=== PATIENT | male | born 2005 | race Caucasian/White ===

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

== ENCOUNTER 2023-04-11 11:06 | Day surgery (SDC) | payer OTHER ==
[2023-04-04 16:43] VITALS: BMI 24.2
[2023-04-11] MEDS ORDERED: PROPOFOL 20 ML ONE (13:19)
[2023-04-11] MEDS ORDERED: MIDAZOLAM HCL 2 MG/2 ML SINGLE DOSE VIAL ONE (13:19)
[2023-04-11] MEDS ORDERED: LIDOCAINE HCL/PF 2% SDV 5ML VIAL ONE (13:19)
[2023-04-11] MEDS ORDERED: BACITRACIN ZINC 15 GM TUBE TOPICAL OINTMENT ONE (13:31)
[2023-04-11] MEDS ORDERED: BUPIVACAINE HCL/PF 0.5% (5MG/ML) 10 ML VIAL ONE ×2 (13:32→14:40)
[2023-04-11] MEDS ORDERED: DEXAMETHASONE SOD PHOSPHATE 4 MG/1 ML VIAL ONE (14:34)
[2023-04-11] MEDS ORDERED: ceFAZolin SODIUM 1 GM VIAL ONE (14:34)
[2023-04-11] MEDS ORDERED: BUPIVACAINE HCL/PF 0.5% (5MG/ML) 10 ML VIAL IJ ONE (14:40)
[2023-04-11] MEDS ORDERED: KETOROLAC TROMETHAMINE 30 MG/1 ML VIAL ONE (15:28)
[2023-04-11] MEDS ORDERED: ONDANSETRON 4 MG/2 ML VIAL ONE (15:28)
[2023-04-11] MEDS ORDERED: PROMETHAZINE HCL 25 MG/1 ML VIAL IVPB PRN (16:25)
[2023-04-11] MEDS ORDERED: ONDANSETRON 4 MG/2 ML VIAL IVPUSH PRN (16:25)
[2023-04-11] MEDS ORDERED: oxyCODONE HCL 5 MG TABLET PO PRN ×2 (16:25)
[2023-04-11] MEDS ORDERED: ACETAMINOPHEN 1000 MG/100 ML BAG IVPB ONE (16:25)
[2023-04-11] MEDS ORDERED: LACTATED RINGERS SOLUTION 1,000 ML IV SCH (16:30)
[2023-04-11] MEDS ORDERED: ACETAMINOPHEN INJECTION 100 ML IVPB ONE (17:07)
[2023-04-11 18:14] VITALS: TEMP 97.8
[2023-04-11 18:17] VITALS: PULSE 90; RESP 18
[2023-04-11 18:36] VITALS: BP 124/75
== END 2023-04-11 18:27 | disposition home or self-care (01) ==
LOC: FASU 11:06
PROVIDERS: ATTEND Urology Pediatric Urology
PROC: 0VTTXZZ Resection of Prepuce, External Approach (ICD-10-PCS; principal; 2023-04-11 14:50)
PROC: 0HBAXZZ Excision of Inguinal Skin, External Approach (ICD-10-PCS; 2023-04-11 14:50)
DX: N48.89 Other specified disorders of penis (principal); L72.9 Follicular cyst of the skin and subcutaneous tissue, unspecified; Z78.9 Other specified health status
CPT/HCPCS: 88304-TC; 94760